=== PATIENT | male | born 1975 | race Caucasian/White ===

== ENCOUNTER 2020-03-27 10:06 | Day surgery (SDC) | payer OTHER ==
[2020-03-25 15:17] VITALS: BMI 25.8
[2020-03-27] MEDS ORDERED: ONDANSETRON 4 MG/2 ML VIAL ONE ×2 (10:15→13:48)
[2020-03-27] MEDS ORDERED: DEXAMETHASONE SOD PHOSPHATE 4 MG/1 ML VIAL ONE (10:15)
[2020-03-27] MEDS ORDERED: MIDAZOLAM HCL 2 MG/2 ML SINGLE DOSE VIAL ONE (10:16)
[2020-03-27] MEDS ORDERED: PROPOFOL 20 ML ONE ×2 (10:16→11:36)
[2020-03-27] MEDS ORDERED: ceFAZolin 2 GRAM PREMIX BAG IVPB ONE (11:31)
[2020-03-27] MEDS ORDERED: SEVOFLURANE 250 ML BTL ONE (12:15)
[2020-03-27] MEDS ORDERED: ONDANSETRON 4 MG/2 ML VIAL IVPUSH PRN (12:27)
[2020-03-27] MEDS ORDERED: oxyCODONE HCL 5 MG TABLET PO PRN (12:27)
[2020-03-27] MEDS ORDERED: PROMETHAZINE HCL 25 MG/1 ML VIAL IVPUSH PRN (12:27)
[2020-03-27] MEDS ORDERED: LACTATED RINGERS SOLUTION 1,000 ML IV SCH (12:30)
[2020-03-27] MEDS ORDERED: BUPIVACAINE HCL/PF 2.5 MG/ML - 30 ML VIAL IJ ONE (12:42)
[2020-03-27] MEDS ORDERED: BUPIVACAINE HCL/PF 0.25% (2.5MG/ML) 10 ML VIAL IJ ONE (12:45)
[2020-03-27] MEDS ORDERED: IBUPROFEN 800 MG/8 ML IJ IVPB PRN (13:02)
[2020-03-27] MEDS ORDERED: IBUPROFEN 800 MG/8 ML IJ IVPB ONE (13:11)
[2020-03-27 14:39] VITALS: TEMP 98.2
[2020-03-27] MEDS ORDERED: oxyCODONE HCL 5 MG TABLET ONE (14:40)
[2020-03-27 14:59] VITALS: BP 126/70; PULSE 80
== END 2020-03-27 15:40 | disposition home or self-care (01) ==
LOC: FASU 10:06
PROVIDERS: ATTEND Orthopaedic Surgery Hand Surgery
PROC: 0LQ70ZZ Repair Right Hand Tendon, Open Approach (ICD-10-PCS; 2020-03-27)
PROC: 0LQ70ZZ Repair Right Hand Tendon, Open Approach (ICD-10-PCS; 2020-03-27)
PROC: 0JCJ0ZZ Extirpation of Matter from Right Hand Subcutaneous Tissue and Fascia, Open Approach (ICD-10-PCS; 2020-03-27)
PROC: 0LQ50ZZ Repair Right Lower Arm and Wrist Tendon, Open Approach (ICD-10-PCS; principal; 2020-03-27 11:30)
DX: S56.423A Laceration of extensor muscle, fascia and tendon of right middle finger at forearm level, initial encounter (principal); S61.421A Laceration with foreign body of right hand, initial encounter; S61.521A Laceration with foreign body of right wrist, initial encounter; X58.XXXA Exposure to other specified factors, initial encounter; Y93.9 Activity, unspecified; Y92.9 Unspecified place or not applicable; Y99.9 Unspecified external cause status
CPT/HCPCS: 93005; 94760